=== PATIENT | male | born 1975 | race Caucasian/White ===

== ENCOUNTER 2018-01-24 20:58 | Emergency (ER) | payer OTHER | END 2018-01-25 03:17 | disposition home or self-care (01) | LOC: FTE 20:58 | DX: S00.33XA Contusion of nose, initial encounter (principal); S06.0X0A Concussion without loss of consciousness, initial encounter; Y08.89XA Assault by other specified means, initial encounter | CPT/HCPCS: 70450; 70486; 99284-25 ==